=== PATIENT | female | born 1965 | race Asian ===

== ENCOUNTER 2017-01-25 13:12 | Emergency (ER) | payer OTHER ==
--- NOTE | 2017-01-25 13:22 | PDOC ---
History of Present Illness - General History Source: Patient - History of Present Illness Initial Comments: 01/25/17 13:23 Ms. Gross is a 51 yo F with no significant PMH who presents with R foot pain. She reports twisting her foot and "hearing a pop" and that her foot now has a bump on it. She endorses pain with movement but no loss of sensation or range of motion. PMH: denies PSH: denies Leonard: NKDA Soc: Denies alcohol / tobacco use. <Murtaza Kaye - Last Filed: 01/25/17 13:37> <Maral Shah - Last Filed: 01/25/17 14:24> - General Chief Complaint: Injury Stated Complaint: FALL Time Seen by Provider: 01/25/17 13:16 Past History - Psycho/Social/Smoking Cessation Hx Anxiety: No Suicidal Ideation: No Smoking History: Never smoked Hx Alcohol Use: No Substance Use Type: None <Murtaza Kaye - Last Filed: 01/25/17 13:37> <Maral Shah - Last Filed: 01/25/17 14:24> - Past Medical History Allergies/Adverse Reactions: Allergies Allergy/AdvReac Type Severity Reaction Status Date / Time No Known Allergies Allergy Verified 01/25/17 13:27 Home Medications: Ambulatory Orders NK [No Known Home Medication] 07/04/14 Review of Systems - Review of Systems Comments:: 01/25/17 13:26 Foot pain reported dorsally at 5th metacarpal location. Pain with weight bearing and movement. No loss of sensation or ROM. <Murtaza Kaye - Last Filed: 01/25/17 13:37> *Physical Exam - Physical Exam Comments: 01/25/17 13:27 On exam patient's RLE is normal in appearance. "Bump" noted at R 5th metacarpal on RLE that patient says was not there previously. Pain to palpation and weight bearing noted, no loss of movement or sensation appreciated. <Murtaza Kaye - Last Filed: 01/25/17 13:37> - Vital Signs Last Vital Signs Temp Pulse Resp BP Pulse Ox 98.2 F 75 15 174/94 100 01/25/17 13:12 01/25/17 13:12 01/25/17 13:12 01/25/17 13:12 01/25/17 13:12 <Maral Shah - Last Filed: 01/25/17 14:24> Procedures - Splinting Splint Location: Right: Foot (orthopedic shoe) Pre-Proc Neuro Vasc Exam: normal Post-Proc Neuro Vasc Exam: normal Complications: No <Maral Shah - Last Filed: 01/25/17 14:24> Medical Decision Making - Medical Decision Making 01/25/17 13:28 Patient presented after acute mechanical fall. Endorses hearing a "pop" at the time. Suspect sprain or small bone fracture. Ankle/foot XR ordered for confirmation. Radiology noted nondisplaced fracture of proximal 5th metatarsal. Referred to podiatry and given boot for ambulation. 01/25/17 14:02 01/25/17 14:04 <Murtaza Kaye - Last Filed: 01/25/17 13:37> *DC/Admit/Observation/Transfer - Attestations Physician Attestion: 01/25/17 13:29 I, Dr. Murtaza Kaye, attest that this document has been prepared under my direction and personally reviewed by me in its entirety. I further attest, that it accurately reflects all work, treatment, procedures and medical decision -making performed by me. 01/25/17 14:05 <Murtaza Kaye - Last Filed: 01/25/17 13:37> <Maral Shah - Last Filed: 01/25/17 14:24> Diagnosis at time of Disposition: Metatarsal bone fracture Qualifiers: Encounter type: initial encounter Metatarsal bone: fifth Fracture type: closed Fracture alignment: nondisplaced Laterality: unspecified laterality Qualified Code(s): S92.356A - Nondisplaced fracture of fifth metatarsal bone, unspecified foot, initial encounter for closed fracture - Discharge Dispostion Disposition: HOME Condition at time of disposition: Stable - Referrals Referrals: Cal Dover MD [Staff Physician] - Ran Khalil MD [Staff Physician] - Ken Benson MD [Staff Physician] - Alex Masterson MD [Staff Physician] - - Patient Instructions Printed Discharge Instructions: DI for Foot Fracture
[2017-01-25 13:27] VITALS: BP 174/94; PULSE 75; TEMP 98.2; BMI 20.2
--- NOTE | 2017-01-25 13:31 | PDOC ---
Attending Attestation - Resident Resident Name: Murtaza Kaye - ED Attending Attestation I have performed the following: I have examined & evaluated the patient, The case was reviewed & discussed with the resident, I agree w/resident's findings & plan, Exceptions are as noted - HPI HPI: 51 yo F no PMH presents with R foot pain. She states that she twisted her foot and felt a popping sensation. Denies weakness, numbness. She states she has 4/5 pain, worse with walking. +Bruising over the R foot. No other injuries. - Physicial Exam PE: GENERAL: Awake, alert, and fully oriented, in no acute distress HEAD: No signs of trauma EYES: PERRLA, EOMI, sclera anicteric, conjunctiva clear ENT: Auricles normal inspection, hearing grossly normal, nares patent, oropharynx clear without exudates. Moist mucosa EXTREMITIES: R foot with small hematoma overlying the base of the 5th metatarsal , with mod tenderness to palpation. Remainder of extremities with normal range of motion, no edema. No clubbing or cyanosis. No cords, erythema. NEUROLOGICAL: Cranial nerves II through XII grossly intact. Normal speech. Motor and sensation intact. SKIN: Warm, Dry, normal turgor, no rashes or lesions noted. - Medical Decision Making XR c/w fracture. Hard shoe, outpatient podiatry f/u.
== END 2017-01-25 14:15 | disposition home or self-care (01) ==
LOC: FER 13:12
DX: S62.346A Nondisplaced fracture of base of fifth metacarpal bone, right hand, initial encounter for closed fracture (principal); X58.XXXA Exposure to other specified factors, initial encounter; Y93.9 Activity, unspecified; Y92.9 Unspecified place or not applicable
CPT/HCPCS: 73610-TC-RT; 73630-TC-RT; 99282-25

== ENCOUNTER 2018-08-09 23:55 | Emergency (ER) | payer OTHER ==
[2018-08-10 00:01] VITALS: BP 165/81; PULSE 77; TEMP 98.2; BMI 21.2
--- NOTE | 2018-08-10 00:25 | PDOC ---
History of Present Illness - General Chief Complaint: Headache Stated Complaint: HEADACHE Time Seen by Provider: 08/10/18 00:07 History Source: Patient Exam Limitations: No Limitations - History of Present Illness Initial Comments: 08/10/18 00:27 This is a 53-year-old female who comes in complaining of a headache. Patient had a severe headache and took her blood pressure and noted it was approximately 180 systolic. So patient came in for evaluation. Prior to coming in patient didn't take an Aleve and by the time she got here her headach Was improved and her blood pressure was 165/81. In review of patient's prior history her blood pressure was 170/84 2013 and 174/94 in 2017. Patient is not on any medication for her hypertension. Allergies: None Past Medical History: none Social history: Lives with family. No smoking. No alcohol. No illicit drugs. Surgical history: None General: No fevers or chills, no weakness, no weight loss HEENT: No change in vision. No sore throat,. No ear pain CardioVascular: no chest discomfort. No shortness of breath Respiratory:No cough, or wheezing. Gastrointestinal: no nausea, vomiting, diarrhea or constipation, No rectal bleeding Genitourinary: No dysuria, hematuria, or frequency Musculoskeletal: No joint or muscle pain or swelling Neurologic: No headache, vertigo, dizziness or loss of consciousness Psychiatric: nor depression Skin: No rashes or easy bruising Endocrine: no increased thirst or abnormal weight change Allergic: no skin or latex allergy All other systems reviewed and normal GENERAL: The patient is awake, alert, and fully oriented, in no acute distress. HEAD: Normal with no signs of trauma. EYES: Pupils equal, round and reactive to light, extraocular movements intact, sclera anicteric, conjunctiva clear. EXTREMITIES:atraumatic, Normal range of motion, no edema. NEUROLOGICAL: Normal speech, normal gait. PSYCH: Normal mood, normal affect. SKIN: Warm, Dry, normal turgor, no rashes or lesions noted. Assessment plan: This is a 53-year-old female who comes in with headache secondary to elevated blood pressure. Head CT done to rule out any acute intracranial pathology. Head CT was negative for any acute intracranial pathology. Patient told to follow-up with her doctor next week as she should be started on some blood pressure medication. Head CT Past History - Past Medical History Allergies/Adverse Reactions: Allergies Allergy/AdvReac Type Severity Reaction Status Date / Time No Known Allergies Allergy Verified 01/25/17 13:27 Home Medications: Ambulatory Orders NK [No Known Home Medication] 07/04/14 COPD: No - Immunization History Immunization Up to Date: Yes - Suicide/Smoking/Psychosocial Hx Smoking History: Never smoked Hx Alcohol Use: No Drug/Substance Use Hx: No Substance Use Type: None *Physical Exam - Vital Signs Last Vital Signs Temp Pulse Resp BP Pulse Ox 98.2 F 77 16 165/81 98 08/09/18 23:57 08/09/18 23:57 08/09/18 23:57 08/09/18 23:57 08/09/18 23:57 Moderate Sedation - Procedure Monitoring Vital Signs: Procedure Monitoring Vital Signs Temperature 98.2 F 08/09/18 23:57 Pulse Rate 77 08/09/18 23:57 Respiratory Rate 16 08/09/18 23:57 Blood Pressure 165/81 08/09/18 23:57 O2 Sat by Pulse Oximetry (%) 98 08/09/18 23:57 ED Treatment Course - RADIOLOGY Radiology Studies Ordered: Category Date Time Status HEAD CT WITHOUT CONTRAST [CT] Stat CT Scan 08/10/18 00:07 Ordered *DC/Admit/Observation/Transfer Diagnosis at time of Disposition: Essential hypertension, Headache - Discharge Dispostion Disposition: HOME Condition at time of disposition: Stable Decision to Admit order: No - Referrals Referrals: Janet Myrick MD [Primary Care Provider] - - Patient Instructions Additional Instructions: Is important that you follow-up with your doctor next week and discuss getting started on some medication for hypertension. You to take Tylenol or Motrin for the headache. Return to the emergency department immediately with ANY new, persistent or worsening symptoms. Continue any medications as previously prescribed by your physician. You should follow up with your primary doctor as soon as possible regarding today's emergency department visit. . Please make sure your doctor reviews the results of your emergency evaluation. Thank you for coming to the Emergency Department today for your care. It was a pleasure to see you today. Please note that your evaluation is INCOMPLETE until you follow-up with your doctor. - Post Discharge Activity
[2018-08-10] MEDS ORDERED: ACETAMINOPHEN 500 MG TABLET (FP) PO ONE (00:26)
[2018-08-10] MEDS ORDERED: ACETAMINOPHEN 500 MG TABLET (FP) ONE (00:32)
== END 2018-08-10 01:05 | disposition home or self-care (01) ==
LOC: SUPCPDRO 23:55 → FER 23:55
DX: I10 Essential (primary) hypertension (principal); R51 Headache
CPT/HCPCS: 70450-TC; 99281-25